=== PATIENT | male | born 1955 | race Caucasian/White ===

== ENCOUNTER 2020-01-05 17:23 | Outpatient (REF) | payer BC, SELFPAY | END 2020-01-05 17:24 | disposition home or self-care (01) | LOC: HO.LAB 17:23 | PROVIDERS: Visit Provider Internal Medicine | DX: Z20.828 Contact with and (suspected) exposure to other viral communicable diseases (principal) | CPT/HCPCS: C9803; U0003 ==

== ENCOUNTER 2020-03-04 08:29 | Day surgery (SDC) | payer BC, SELFPAY ==
[2020-03-04] VITALS (11 sets, daily range): BP systolic 101–180; BP diastolic 61–86; PULSE 55–70; RESP 15–16; TEMP 36.2–36.6; O2SAT 97–100; BMI 22.8
--- NOTE | 2020-03-04 08:21 | ED_ITS ---
HPI - Abdominal Pain General Chief Complaint: Abdominal Pain Stated Complaint: abd pain Time Seen by Provider: 03/04/20 08:21 Source: patient Mode of arrival: ambulatory Limitations: no limitations History of Present Illness HPI narrative: Patient no significant past abdominal complaints complaining of left lower quadrant pain for last 2 days got worse last night mild nausea vomited once today no blood in stool does not feel hungry never had this similar pain in the past patient denies any fever/chills no urinary complaints no history of kidney stone , no abdominal distension MD elicited complaint: abdominal pain Onset (ago): day(s) (2) Pain Consistency: constant Location: LLQ Severity: moderate Quality: dull Migration to: no migration Exacerbating factors: movement Relieving factors: nothing Associated symptoms: nausea and vomiting Related Data Previous Rx's Medication Instructions Recorded oxycodone-acetaminophen [Percocet] 1 tab PO Q6H PRN #14 tab 03/04/20 tamsulosin 0.4 mg PO DAILY #30 cap 03/04/20 Allergies Allergy/AdvReac Type Severity Reaction Status Date / Time No Known Allergies Allergy Verified 03/04/20 12:05 Review of Systems Review of Systems Constitutional : No Weight loss, No Fever, No Chills ENT/Mouth : No sore throat, No Rhinorrhea Eyes: No Eye Pain, No Swelling Cardiovascular : No Chest Pain, no palpitations Respiratory : No Cough, No Sputum, no shortness of breath Gastrointestinal :+ Nausea, + Vomiting, No Diarrhea, + abdominal Pain, no black stools Genitourinary : No Dysuria, No Urinary Frequency Musculoskeletal : No joint pain, No Myalgias, No Joint Swelling Skin : No Skin Lesions, No rash Neuro : No Weakness, No Numbness, No Dizziness, No Headache Psych : No Anxiety/Panic, No Depression Heme/Lymph: No Bruising, No Lymphadenopathy Endocrine : No Polyuria, No Polydipsia All other systems reviewed and are negative Physical Exam Vital Signs: Vital Signs: Last Vital Signs Temp 97.1 F 03/04/20 14:00 Pulse 70 03/04/20 14:00 Resp 16 03/04/20 14:00 BP 141/78 H 03/04/20 14:00 Pulse Ox 97 03/04/20 14:00 Body Mass Index 22.8 Appearance: Alert. Oriented X3. No acute distress. Eyes: Pupils equal, round and reactive to light. ENT: Pharynx normal. Neck: Normal inspection. Neck supple. CVS: Normal heart rate and rhythm. Pulses normal. Respiratory: No respiratory distress. Breath sounds normal. Abdomen: Soft , deep tenderness left lower quadrant+ Bowel sounds are present, no mass palpable, L CVA tenderness + , no rebound tenderness or guarding Skin: Skin warm and dry. Normal skin color. Normal skin turgor. Extremities: No lower extremity edema. Neuro: Oriented X 3. No motor deficit. No sensory deficit. MDM - Abdominal Pain MDM Narrative Medical decision making narrative: Patient with significant left hydronephrosis secondary to proximal 8 mm UPJ stone. Case discussed with Dr. Perez will take the patient for lithotripsy and stent placement today Differential Diagnosis Differential diagnosis: Likely renal colic Medical Records Attestation: I reviewed the patient's medical records. Lab Data Attestation: I reviewed the patient's lab results. Result diagrams: 03/04/20 08:42 03/04/20 09:09 Labs: Lab Results 03/04/20 03/04/20 03/04/20 Range/Units 08:42 09:09 09:39 WBC 15.7 H (4.8-10.8) X10*3/uL RBC 4.66 (4.60-5.80) X10*6/uL Hgb 13.0 L (14.0-18.0) g/dl Hct 39.7 L (42-52) % MCV 85.2 (80-98) fL MCH 27.9 (27.0-33.0) pg MCHC 32.7 (31.0-36.0) g/dl RDW 14.3 (11.0-16.0) % Plt Count 239 (160-400) X10*3/uL MPV 11.4 (9.4-12.4) fL Immature Gran % (Auto) 0.3 (0.0-0.4) % Neut % (Auto) 89.5 H (45-73) % Lymph % (Auto) 6.6 L (20-40) % [place] % (Auto) 3.4 (2-11) % Eos % (Auto) 0.1 (0-4) % Baso % (Auto) 0.1 (0-2) % Lymph # (Auto) 1.0 L (1.2-4.9) X10*3/uL [place] # (Auto) 0.5 (0.1-1.2) X10*3/uL Eos # (Auto) 0.0 (0.0-0.4) X10*3/uL Baso # (Auto) 0.0 (0.0-0.2) X10*3/uL Abs Immat Gran (auto) 0.04 H (0.00-0.03) X10*3/uL Absolute Neuts (auto) 14.1 H (2.0-8.3) X10*3/uL Absolute Nucleated RBC 0.000 (0.0-0.012) X10*3/uL Nucleated RBC % (auto) 0.0 (0.0-0.2) /100WBC Sodium 137 (135-145) mmol/L Potassium 3.8 (3.3-5.1) mmol/l Chloride 102 (96-108) mmol/L Carbon Dioxide 28 (22-29) mmol/L Anion Gap 11 L (12-20) BUN 17 H (9-16) mg/dL Creatinine 0.96 (0.5-1.4) mg/dL Estim Creat Clear Calc 73.8 Estimated GFR > 60 Random Glucose 123 H (60-115) mg/dL Calcium 9.0 (8.4-10.2) mg/dL Total Bilirubin 0.4 (0.0-1.0) mg/dL Direct Bilirubin 0.2 (0.0-0.5) mg/dL AST 13 (5-37) U/L ALT 9 (0-40) U/L Alkaline Phosphatase 83 (39-117) U/L Total Protein 7.2 (6.5-8.0) g/dL Albumin 4.3 (3.5-5.0) g/dL Lipase 10 (8-78) U/L Urine Color Urine Appearance Urine pH (5.0-8.0) Ur Specific [place] (1.005-1.025) Urine Protein (NEG-TRACE) MG/DL Urine Glucose (UA) (NEG) MG/DL Urine Ketones (NEG) MG/DL Urine Blood (NEG) Urine Nitrite (NEG) Ur Leukocyte Esterase (NEG) Urine RBC (0) /HPF Urine WBC (0-4) /HPF Ur Squamous Epith Cells /LPF Urine Bacteria /LPF Urine Mucus /LPF COVID-19 (ARUNA) Negative (Negative) COVID-19 Clin Com See Note 03/04/20 Range/Units 10:44 WBC (4.8-10.8) X10*3/uL RBC (4.60-5.80) X10*6/uL Hgb (14.0-18.0) g/dl Hct (42-52) % MCV (80-98) fL MCH (27.0-33.0) pg MCHC (31.0-36.0) g/dl RDW (11.0-16.0) % Plt Count (160-400) X10*3/uL MPV (9.4-12.4) fL Immature Gran % (Auto) (0.0-0.4) % Neut % (Auto) (45-73) % Lymph % (Auto) (20-40) % Mason % (Auto) (2-11) % Eos % (Auto) (0-4) % Baso % (Auto) (0-2) % Lymph # (Auto) (1.2-4.9) X10*3/uL Mason # (Auto) (0.1-1.2) X10*3/uL Eos # (Auto) (0.0-0.4) X10*3/uL Baso # (Auto) (0.0-0.2) X10*3/uL Abs Immat Gran (auto) (0.00-0.03) X10*3/uL Absolute Neuts (auto) (2.0-8.3) X10*3/uL Absolute Nucleated RBC (0.0-0.012) X10*3/uL Nucleated RBC % (auto) (0.0-0.2) /100WBC Sodium (135-145) mmol/L Potassium (3.3-5.1) mmol/l Chloride (96-108) mmol/L Carbon Dioxide (22-29) mmol/L Anion Gap (12-20) BUN (9-16) mg/dL Creatinine (0.5-1.4) mg/dL Estim Creat Clear Calc Estimated GFR Random Glucose (60-115) mg/dL Calcium (8.4-10.2) mg/dL Total Bilirubin (0.0-1.0) mg/dL Direct Bilirubin (0.0-0.5) mg/dL AST (5-37) U/L ALT (0-40) U/L Alkaline Phosphatase (39-117) U/L Total Protein (6.5-8.0) g/dL Albumin (3.5-5.0) g/dL Lipase (8-78) U/L Urine Color YELLOW Urine Appearance CLEAR Urine pH 6.0 (5.0-8.0) Ur Specific [place] 1.025 (1.005-1.025) Urine Protein NEG (NEG-TRACE) MG/DL Urine Glucose (UA) NEG (NEG) MG/DL Urine Ketones 15 (NEG) MG/DL Urine Blood 1+ H (NEG) Urine Nitrite NEG (NEG) Ur Leukocyte Esterase NEG (NEG) Urine RBC 5-9 H (0) /HPF Urine WBC 0-2 (0-4) /HPF Ur Squamous Epith Cells NONE /LPF Urine Bacteria NONE /LPF Urine Mucus TRACE /LPF COVID-19 (ARUNA) (Negative) COVID-19 Clin Com Discharge Plan Discharge Clinical Impression: Calculus of kidney Patient Disposition: Home, Self-Care Additional Instructions: TO SSS Prescriptions: New tamsulosin 0.4 mg capsule 0.4 mg PO DAILY Qty: 30 RF: 0 oxycodone-acetaminophen [Percocet] 5-325 mg tablet 1 tab PO Q6H PRN (Reason: pain) Qty: 14 RF: 0 Referrals: Physician,None [Primary Care Provider] - Grant Perez III, MD [Physician] - [facility] Past Medical History Medical History (Updated 03/04/20 @ 12:23 by Lien Garcia RN) Normal colonoscopy Social History Social History Alcohol intake: never Smoking Status: Current every day smoker Cigarettes Per Day: 10 Smoked in Last 30 Days: Yes Use of substances other than those prescribed or required for medical reasons: No Advance Directives: No Advance Directives Information Provided: No
--- NOTE | 2020-03-04 08:25 | CT_ITS ---
EXAMINATION: CT ABDOMEN AND PELVIS WITHOUT CONTRAST CLINICAL INFORMATION: Left lower quadrant pain. COMPARISON: None TECHNIQUE: Multidetector volumetric imaging was performed from the superior aspect of the liver through the pubic symphysis. Sagittal and coronal reformatted images were obtained on the technologist's workstation. This CT examination was performed using dose optimization techniques as appropriate, variously including the following: Automated exposure control. Adjustment of mA and/or kV according to patient size (this includes techniques or standardized protocols for targeted exams where dose is matched to indication/reason for exam; i.e. extremities or head). Use of iterative reconstruction technique. DLP: 536 mGy-cm FINDINGS: LUNG BASES: Bibasilar haziness likely atelectasis or scarring. Heart size is normal. There is a small hiatal hernia. LIVER, GALLBLADDER, AND BILIARY TREE: The liver is normal in size, shape, and attenuation. No focal hepatic lesion or biliary ductal dilatation is present. The gallbladder is unremarkable with no evidence of radiopaque gallstones, gallbladder wall thickening, or obvious pericholecystic inflammatory changes. PANCREAS: Unremarkable. SPLEEN: Unremarkable. ADRENAL GLANDS: Unremarkable. KIDNEYS AND URETERS: The kidneys are normal in size, shape, and attenuation. There is a larger 8 mm radiopaque calculi left UPJ with moderate left hydronephrosis and slight enlargement of left kidney with perinephric stranding. There is a nonobstructive 8 mm radiopaque calculi lower pole calyx right kidney without caliectasis. BLADDER: Unremarkable. GASTROINTESTINAL TRACT: There is scattered stool and gas seen throughout the colon without significant distention. The small bowel loops are normal caliber. No free air or free fluid seen. The appendix is normal caliber. ABDOMINAL WALL: No significant hernia is appreciated. LYMPH NODES: Normal. VASCULAR: Unremarkable. PELVIC VISCERA: Scattered phleboliths in the pelvis. No free fluid. No abnormal pelvic lymph nodes seen. OSSEOUS STRUCTURES: Unremarkable. CT/CT abdomen pelvis wo con IMPRESSION: An 8 mm obstructive left UPJ radiopaque calculi with moderate left hydronephrosis and enlargement of left kidney and perinephric stranding. Nonobstructive 8 mm radiopaque calculi lower pole calyx right kidney without caliectasis or hydronephrosis. Mild constipation.
[2020-03-04] MEDS: 0.9 % Sodium Chloride 1,000 ML 999 ML IVCONT ×2 (08:44→10:09)
[2020-03-04 08:48] LABS: MANUAL DIFF FLAG NO
[2020-03-04 08:49] LABS: Basophils Percent Auto 0.1 % (0-2); Eosinophils Percent Auto 0.1 % (0-4); Hematocrit 39.7 % (42-52); Imm Gran Abs Auto 0.04 X10*3/uL (0.00-0.03); Imm Gran Pct Auto 0.3 % (0.0-0.4); Lymphocytes Percent Auto 6.6 % (20-40); Mean Corpuscular HGB Conc 32.7 g/dl (31.0-36.0); Mean Corpuscular Hemoglobin 27.9 pg (27.0-33.0); Mean Corpuscular Volume 85.2 fL (80-98); Mean Platelet Volume 11.4 fL (9.4-12.4); Monocytes Absolute Auto 0.5 X10*3/uL (0.1-1.2); Monocytes Percent Auto 3.4 % (2-11); Neutrophils Absolute Auto 14.1 X10*3/uL (2.0-8.3); Neutrophils Percent Auto 89.5 % (45-73); Platelet Count 239 X10*3/uL (160-400); Red Blood Count 4.66 X10*6/uL (4.60-5.80); Red Cell Distribution Width 14.3 % (11.0-16.0); White Blood Count 15.7 X10*3/uL (4.8-10.8)
[2020-03-04] MEDS: Morphine Sulfate 4 MG/ML CARTRIDGE IVPUSH (08:58)
[2020-03-04] MEDS: ondansetron HCL 4 MG/2 ML VIAL IVPUSH (08:59)
[2020-03-04] MEDS: HYDROmorphone HCl 1 MG/ML SYRINGE IVPUSH (09:41)
[2020-03-04 09:52] LABS: Alanine Aminotransferase 9 U/L (0-40); Albumin Level 4.3 g/dL (3.5-5.0); Alkaline Phosphatase 83 U/L (39-117); Anion Gap 11 (12-20); Aspartate Amino Transferase 13 U/L (5-37); Bilirubin Direct 0.2 mg/dL (0.0-0.5); Bilirubin Total 0.4 mg/dL (0.0-1.0); Blood Urea Nitrogen 17 mg/dL (9-16); Carbon Dioxide 28 mmol/L (22-29); Chloride 102 mmol/L (96-108); Creatinine Clr Calc Pharmacy 73.8; Estimated Glomerular Filt Rate > 60; Glucose Random 123 mg/dL (60-115); Lipase 10 U/L (8-78); Potassium 3.8 mmol/l (3.3-5.1); Sodium 137 mmol/L (135-145); Total Protein 7.2 g/dL (6.5-8.0)
[2020-03-04 10:07] LABS: COVID-19 Test Negative (Negative); IDNOW Serial# 9DD0AD1C
[2020-03-04 11:07] LABS: Glucose Urine UA NEG (NEG); Leukocyte Esterase Urine NEG (NEG); Nitrite Urine NEG (NEG); Specific Gravity - Urine 1.025 (1.005-1.025); Urine Blood 1+ (NEG); Urine Ketones 15 MG/DL (NEG); Urine Protein NEG (NEG-TRACE)
[2020-03-04 11:12] LABS: Appearance Urine CLEAR; Color Urine YELLOW
[2020-03-04 11:25] LABS: WBC Urine 0-2 /HPF (0-4)
[2020-03-04 11:26] LABS: Mucus Urine TRACE /LPF
--- NOTE | 2020-03-04 11:48 | MHC.SHP ---
Pre-Procedural Eval Section A The patient is an INPATIENT: No The History & Physical has been completed within 30 days and I have reviewed it.: No Section B Chief Complaint: abd pain Details of Present Illness: Left flank pain with 8 mm UPJ stone. Discussed in detail risks benefits potential complications morbidity mortality reviewed all questions answered informed consent obtained for the patient undergo a cystoscopy left stent placement. Relevant Family History (Specify if Yes): No Relevant Social History: None Present Medications: see Short Stay Collaborative assessment Medical History: No relevant PMH History of Previous Operations: No relevant previous surgery Allergies: Allergies Allergy/AdvReac Type Severity Reaction Status Date / Time No Known Allergies Allergy Unverified 10/29/19 17:12 Review of Systems Sugical H&P ROS: Negative: Constitution, Cardiovascular, Respiratory, Neurological, Psychiatric, Hem-Onc, Allergic/Immunologic, Gastrointestinal, Genitourinary, Musculoskeletal, Integumentary, Endocrine and Eyes/Ears/Nose/Throat Exam Surgical H&P Exam: Normal: HEENT Plan Diagnosis/Plan: Unchanged (Cystoscopy left retrograde stent placement) I have reviewed the history and physical and performed a pertinent physical examination on my patient. No changes have occurred unless specified.
[2020-03-04] MEDS: Lactated Ringers 1,000 ML 100 ML IVCONT (12:12)
[2020-03-04] MEDS: levoFLOXacin/D5W 500 MG/100 ML PIGGYBACK 100 MG IV (12:16)
[2020-03-04] MEDS: Gentamicin Sulfate/NaCl 80 MG/100 ML PIGGYBACK 100 MG IV (12:18)
--- NOTE | 2020-03-04 12:43 | HO.ANESPROP2 ---
HPI - Anesthesia Eval Consult details Narrative: 64 year old male patient for cysto, stent [facility] Past Medical History Medical History (Updated 03/04/20 @ 12:23 by Lien Garcia RN) Normal colonoscopy Family History Family history of problems with anesthesia: No Surgical History History of Problems with Anesthesia: No Social History Social History Alcohol intake: never Smoking Status: Current every day smoker Cigarettes Per Day: 10 Smoked in Last 30 Days: Yes Use of substances other than those prescribed or required for medical reasons: No Advance Directives: No Advance Directives Information Provided: No Meds Allergies Allergy/AdvReac Type Severity Reaction Status Date / Time No Known Allergies Allergy Verified 03/04/20 12:05 Exam Exam Date and Time: March 04, 2020 1243 Height,Weight and Vital Signs: Height 5 ft 8 in Weight 68.039 kg Last Vital Signs Temp 97.7 F 03/04/20 12:07 Pulse 66 03/04/20 12:07 Resp 16 03/04/20 12:07 BP 144/75 H 03/04/20 12:07 Pulse Ox 98 03/04/20 12:07 Pertinent Lab Results Pertinent Lab Results: Laboratory Tests 03/04/20 03/04/20 03/04/20 08:42 09:09 09:39 WBC 15.7 H RBC 4.66 Hgb 13.0 L Hct 39.7 L MCV 85.2 MCH 27.9 MCHC 32.7 RDW 14.3 Plt Count 239 MPV 11.4 Immature Gran % (Auto) 0.3 Neut % (Auto) 89.5 H Lymph % (Auto) 6.6 L [place] % (Auto) 3.4 Eos % (Auto) 0.1 Baso % (Auto) 0.1 Lymph # (Auto) 1.0 L [place] # (Auto) 0.5 Eos # (Auto) 0.0 Baso # (Auto) 0.0 Abs Immat Gran (auto) 0.04 H Absolute Neuts (auto) 14.1 H Absolute Nucleated RBC 0.000 Nucleated RBC % (auto) 0.0 Sodium 137 Potassium 3.8 Chloride 102 Carbon Dioxide 28 Anion Gap 11 L BUN 17 H Creatinine 0.96 Estim Creat Clear Calc 73.8 Estimated GFR > 60 Random Glucose 123 H Calcium 9.0 Total Bilirubin 0.4 Direct Bilirubin 0.2 AST 13 ALT 9 Alkaline Phosphatase 83 Total Protein 7.2 Albumin 4.3 Lipase 10 Urine Color Urine Appearance Urine pH Ur Specific [place] Urine Protein Urine Glucose (UA) Urine Ketones Urine Blood Urine Nitrite Ur Leukocyte Esterase Urine RBC Urine WBC Ur Squamous Epith Cells Urine Bacteria Urine Mucus COVID-19 (ARUNA) Negative COVID-19 Clin Com See Note 03/04/20 10:44 WBC RBC Hgb Hct MCV MCH MCHC RDW Plt Count MPV Immature Gran % (Auto) Neut % (Auto) Lymph % (Auto) [place] % (Auto) Eos % (Auto) Baso % (Auto) Lymph # (Auto) [place] # (Auto) Eos # (Auto) Baso # (Auto) Abs Immat Gran (auto) Absolute Neuts (auto) Absolute Nucleated RBC Nucleated RBC % (auto) Sodium Potassium Chloride Carbon Dioxide Anion Gap BUN Creatinine Estim Creat Clear Calc Estimated GFR Random Glucose Calcium Total Bilirubin Direct Bilirubin AST ALT Alkaline Phosphatase Total Protein Albumin Lipase Urine Color YELLOW Urine Appearance CLEAR Urine pH 6.0 Ur Specific [place] 1.025 Urine Protein NEG Urine Glucose (UA) NEG Urine Ketones 15 Urine Blood 1+ H Urine Nitrite NEG Ur Leukocyte Esterase NEG Urine RBC 5-9 H Urine WBC 0-2 Ur Squamous Epith Cells NONE Urine Bacteria NONE Urine Mucus TRACE COVID-19 (ARUNA) COVID-19 Clin Com Airway Mallampati Class: II TM Dist: >3cm Neck ROM: Full Loose/Missing/Broken Teeth: Yes (Broken tooth) Heart: RRR Lungs: CTAB Assessment and Plan Assessment Anesthesia Assessment: Anesthesia Plan Discussed and Chart Reviewed Final Anesthetic Review NPO: Yes ASA Class: II Final Preanesthetic Review: No Changes in Pt Med Stat, Meds/Allgs Chart Reviewed, Consent Obtained/Reviewed and Anes Risks/Benef Reviewed Patient Risk: Low Procedure Risk: Low Assessment/Block/Sedation in SS: Assess/Block/Sedation-SS Anesthetic Plan Anesthetic Plan: GA Disposition: Standard PACU
--- NOTE | 2020-03-04 12:58 | PM.OP ---
Brief Operative Note Date of Service: 03/04/20 Pre-op diagnosis: lkeft upj stone Post-op diagnosis: same Procedure: cysto left retrograe and stent Implants: 6 fr x 24 cm double j stent Surgeon: Grant Perez III, MD Anesthesia: GLMA Estimated blood loss (mL): 0 Pathology: none sent Condition: stable Disposition: same day
--- NOTE | 2020-03-04 13:53 | OP_ITS ---
SURGEON: Grant Perez III, MD PREOPERATIVE DIAGNOSIS: POSTOPERATIVE DIAGNOSIS: PROCEDURE PERFORMED: Cystoscopy, left retrograde, and left double-J ureteral stent placement. ESTIMATED BLOOD LOSS: None. COMPLICATIONS: None. ANESTHESIA: General. ASSISTANTS: SPECIMENS: PREOP DIAGNOSIS: Left ureteropelvic junction stone. POSTOP DIAGNOSIS: Left ureteropelvic junction stone. SPECIMEN: None. DRAINS: 6-[place] by 24 cm double-J stent. DESCRIPTION OF PROCEDURE: The patient was taken to the operating room, after adequate anesthesia was obtained, a time-out done demonstrating correct patient, correct procedure, and correct site. Following this, the patient underwent cystoscopy followed by left retrograde demonstrated the filling defect in the UPJ. Glidewire was placed, which was noted to push the stone into the patient's renal pelvis. Patient had a 6-[place] by 24 cm double-J stent placed in good position by fluoroscopy and cystoscopy. He tolerated the procedure well without complications. MD LAUREN Carroll III/MODL / [id number]
--- NOTE | 2020-03-04 14:24 | HO.POSTANES ---
Post Anesthesia Evaluation Post Anesthesia Evaluation Vital Signs: Vital Signs Temp Pulse Resp BP Pulse Ox 03/04/20 14:00 97.1 F 70 16 141/78 H 97 03/04/20 13:45 62 16 119/70 97 03/04/20 13:30 58 16 115/70 98 03/04/20 13:25 59 16 108/61 100 03/04/20 13:20 57 16 101/62 100 03/04/20 13:15 97.1 F 58 16 103/61 100 03/04/20 12:07 97.7 F 66 16 144/75 H 98 03/04/20 10:07 97.8 F 55 16 137/80 99 03/04/20 09:43 60 15 155/83 H 99 03/04/20 09:17 97.8 F 56 15 180/86 H 100 03/04/20 08:19 97.8 F 56 15 180/86 H 100 Anesthesia: General LMA Mental Status: Awake Pain Control: Satisfactory Nausea/Vomiting: None Hydration: Adequate Anesthesia-Related Issues: No Anes. Related Issues
== END 2020-03-04 18:30 | disposition home or self-care (01) ==
LOC: HO.ED 14:27 → HO.SSS 03-11 15:57
PROVIDERS: Urology; Visit Provider Internal Medicine
PROC: (CPT 52332; principal; 2020-03-04 12:30)
DX: N13.2 Hydronephrosis with renal and ureteral calculous obstruction (principal); Z20.822 Contact with and (suspected) exposure to COVID-19; F17.200 Nicotine dependence, unspecified, uncomplicated
CPT/HCPCS: 52332; 52005; 36415; 74176; 80048; 80076; 81001; 83690; 85025; 87635; 99284; C1769; C2617; J1100; J1170; J1580; J1956; J2250; J2270; J2405; J3010; Q9967

== ENCOUNTER → 2020-03-07 10:19 | Outpatient (BNVA) | payer BC, SELFPAY | PROVIDERS: Visit Provider Urology ==

== ENCOUNTER 2020-03-30 06:01 | Day surgery (SDC) | payer BC, SELFPAY ==
[2020-03-23 16:47] VITALS: BMI 22.6
--- NOTE | 2020-03-29 11:51 | HO.ANESPROP2 ---
Documented by User: Mojgan Raymundo 03/29/20 12:10 HPI - Anesthesia Eval Consult details Narrative: 64yo M for ESWL s/p cysto, stent 03/04/20 with GA-LMA 5 No prev ESWL on record PMFSH Active Problems Active Problems: All Active Problems (Updated 03/08/20 @ 00:00 by Joaquín Mota) Displacement of indwelling ureteral stent (Acute) Past Medical History Medical History Displacement of indwelling ureteral stent Normal colonoscopy Surgical History Surgical History Hx of cystoscopy Hx of varicose vein ligation Social History Social History Alcohol intake: never Smoking Status: Current every day smoker Cigarettes Per Day: 10 Years Smoked: 25 Use of substances other than those prescribed or required for medical reasons: No Advance Directives: No Advance Directives Information Provided: No Advance Directives on File: No Meds Allergies Allergy/AdvReac Type Severity Reaction Status Date / Time No Known Allergies Allergy Verified 03/30/20 06:19 Exam Exam Date and Time: March 29, 2020 1151 Height,Weight and Vital Signs: Height 5 ft 8 in Weight 67.585 kg Pertinent Lab Results Pertinent Lab Results: Laboratory Tests 03/04/20 03/04/20 08:42 09:09 WBC 15.7 H Hgb 13.0 L Hct 39.7 L Plt Count 239 Sodium 137 Potassium 3.8 Chloride 102 Carbon Dioxide 28 BUN 17 H Creatinine 0.96 Assessment and Plan Assessment Anesthesia Assessment: Chart Reviewed Documented by User: Bri Kim 03/30/20 07:42 PMFSH Past Medical History Medical History Displacement of indwelling ureteral stent Normal colonoscopy Surgical History Surgical History Hx of cystoscopy Hx of varicose vein ligation Social History Social History Alcohol intake: never Smoking Status: Current every day smoker Cigarettes Per Day: 10 Years Smoked: 25 Use of substances other than those prescribed or required for medical reasons: No Advance Directives: No Advance Directives Information Provided: No Advance Directives on File: No Meds Allergies Allergy/AdvReac Type Severity Reaction Status Date / Time No Known Allergies Allergy Verified 03/30/20 06:19 Exam Airway Mallampati Class: II TM Dist: >3cm Neck ROM: Full Assessment and Plan Assessment Anesthesia Assessment: Anesthesia Plan Discussed and Chart Reviewed Final Anesthetic Review NPO: Yes ASA Class: II Final Preanesthetic Review: No Changes in Pt Med Stat, Meds/Allgs Chart Reviewed, Consent Obtained/Reviewed and Anes Risks/Benef Reviewed Patient Risk: Low Procedure Risk: Low Assessment/Block/Sedation in SS: Assess/Block/Sedation-SS Anesthetic Plan Anesthetic Plan: MAC: Disposition: Standard PACU
[2020-03-30] VITALS (8 sets, daily range): BP systolic 90–135; BP diastolic 44–72; PULSE 46–54; RESP 12–18; TEMP 36.2–36.6; O2SAT 97–99
--- NOTE | ~2020-03-30 | XR_ITS ---
EXAMINATION: XR ABDOMEN KUB CLINICAL INDICATION: Stones. COMPARISON: CT abdomen of 03/04/2020. TECHNIQUE: KUB of the abdomen. FINDINGS: The bowel gas pattern is normal with no evidence of ileus or obstruction. The bones are unremarkable. A left ureteral stent is seen in place. About the proximal aspect of the stent, in the expected location of the ureteropelvic junction or proximal ureter, there is a 9 x 7 mm calculus. No other calculus is seen along the path of the stent. Overlying the lower pole of the right kidney, there is a 5 mm calcification. No calcifications seen along the expected path of the right ureter. Psoas margin is intact. XR/XR KUB IMPRESSION: 9 mm calcification along the left ureteral stent which appears to lie either at the ureteropelvic junction or proximal ureter. 5 mm right lower pole calculus.
[2020-03-30] MEDS: Lactated Ringers 1,000 ML 100 ML IVCONT (06:43)
--- NOTE | 2020-03-30 07:46 | MHC.SHP ---
Pre-Procedural Eval Section A The patient is an INPATIENT: No Changes since office visit: No Cold of Flu in the past 2 weeks, No New Medical Problems, No Changes in Medication and No Patient answered all questions The History & Physical has been completed within 30 days and I have reviewed it.: Yes Section B Chief Complaint: calculus of kidney Allergies: Allergies Allergy/AdvReac Type Severity Reaction Status Date / Time No Known Allergies Allergy Verified 03/30/20 06:19 Plan Diagnosis/Plan: Unchanged I have reviewed the history and physical and performed a pertinent physical examination on my patient. No changes have occurred unless specified. Left ESWL
--- NOTE | 2020-03-30 07:47 | PM.OP ---
Brief Operative Note Date of Service: 03/30/20 Pre-op diagnosis: Left renal stone Post-op diagnosis: same Procedure: Left ESWL Surgeon: Mohamud oCates MD Anesthesia: MAC Estimated blood loss (mL): 0 Condition: stable Disposition: same day
--- NOTE | 2020-03-30 07:50 | W.PM.OPN ---
Operative Note Operative Note Date of Service: 03/30/20 Narrative: PreOperative Diagnosis: left Renal stones Post Operative Diagnosis: left Renal stones Procedure: left ESWL Surgeon: Dr Mohamud Coates Anesthesia: mac/sedation Indications for procedure: They understand ESWL may be a staged procedure and subsequent intervention may be required based on imaging after ESWL. They also understand there is a risk of bleeding, infection, damage to adjacent organs. Procedure: After informed consent was verified the patient was brought to the operating room and placed in a supine position. Anesthesia was performed per protocol. Safety pause time-out was performed. Imaging was in the room and laterality confirmed. ESWL was performed. The 1st 500 shocks were performed at 60 hertz. These were performed with increasing power. Once maximum power was reached the rate was increased to 180 hertz. A total of 2500 shocks were given. Fluoroscopy showed stone disintegration. They tolerated procedure well and was transferred to the recovery area upon completion.
[2020-03-30] MEDS: Phenazopyridine HCL 100 MG TABLET PO (08:25)
--- NOTE | 2020-03-30 10:05 | HO.POSTANES ---
Post Anesthesia Evaluation Post Anesthesia Evaluation Vital Signs: Vital Signs Temp Pulse Resp BP Pulse Ox 03/30/20 09:00 50 18 135/72 98 03/30/20 08:45 48 L 18 102/66 98 03/30/20 08:30 46 L 18 101/61 98 03/30/20 08:15 47 L 102/56 L 98 03/30/20 08:10 52 90/52 L 98 03/30/20 08:04 52 16 96/47 L 97 03/30/20 08:01 97.2 F 52 12 91/44 L 97 03/30/20 06:41 97.8 F 54 16 128/72 99 Anesthesia: Monitored Mental Status: Awake Pain Control: Satisfactory Nausea/Vomiting: None Hydration: Adequate Anesthesia-Related Issues: No Anes. Related Issues
== END 2020-03-30 09:48 | disposition home or self-care (01) ==
PROVIDERS: Visit Provider Urology
PROC: (CPT 50590; principal; 2020-03-30 07:30)
DX: N20.0 Calculus of kidney (principal); F17.210 Nicotine dependence, cigarettes, uncomplicated
CPT/HCPCS: 50590; 74018; J1885; J2370; J2405; J3010

== ENCOUNTER → 2020-05-24 10:49 | Outpatient (BNVA) | payer BC, SELFPAY | PROVIDERS: Visit Provider Urology | DX: Z46.6 Encounter for fitting and adjustment of urinary device (principal) | CPT/HCPCS: 52310 ==

== ENCOUNTER 2020-06-02 16:13 | Outpatient (REF) | payer BC, SELFPAY ==
--- NOTE | ~2020-06-02 | US_ITS ---
EXAMINATION: US RETROPERITONEAL LIMITED (RENAL ONLY) CLINICAL INFORMATION: Calculus of kidney. COMPARISON: KUB 03/30/2020. CT abdomen and pelvis 03/04/2020. TECHNIQUE: Real-time imaging of the kidneys. FINDINGS: RIGHT KIDNEY: 10.4 x 4.6 x 4.8 cm (SAG x AP x TRV). The kidney is normal in size, contour, and echogenicity. Renal cortical thickness is normal. No focal parenchymal lesions. There is no hydronephrosis. A 0.9 cm x 0.5 echogenic, shadowing focus is suspected in the region of the right proximal ureter near the ureteropelvic junction. This may correspond to a calculus that was situated within a lower pole calyx on the prior study. LEFT KIDNEY: 12.0 x 5.9 x 5.2 cm (SAG x AP x TRV). The kidney is normal in size, contour, and echogenicity. Renal cortical thickness is normal. No renal calculi or focal parenchymal lesions. Mild hydronephrosis, improved as compared to the prior CT from 03/04/2020. BLADDER: Bilateral ureteral jets are demonstrated. Bladder wall is normal in thickness. US/US renal BI IMPRESSION: 1. Probable 9 mm calculus in the region of the right proximal ureter at the UPJ. No appreciable hydronephrosis. This was evident on prior radiographs within the right lower renal pole. Consider correlation with KUB or CT for further assessment. 2. Mild left hydronephrosis, improved as compared to prior.
== END 2020-06-02 16:14 | disposition home or self-care (01) ==
LOC: HO.US 16:13
PROVIDERS: Visit Provider Urology
DX: N20.0 Calculus of kidney (principal)
CPT/HCPCS: 76775

== ENCOUNTER → 2020-09-28 13:20 | Outpatient (BNVA) | payer BC, SELFPAY | PROVIDERS: Visit Provider Urology ==

== ENCOUNTER 2020-11-30 06:14 | Day surgery (SDC) | payer BC, SELFPAY ==
[2020-11-25 10:37] VITALS: BMI 22.6
--- NOTE | ~2020-11-30 | XR_ITS ---
EXAMINATION: XR ABDOMEN KUB CLINICAL INDICATION: Kidney stones COMPARISON: Previous KUB March 2020 TECHNIQUE: AP view of the abdomen. FINDINGS: There is a 5 mm stone projecting over the lower pole of the right kidney. There is question of a 3 mm stone projecting over the mid to lower pole of the left kidney versus bowel gas. There are small bilateral pelvic calcifications that are stable probably representing calcified phleboliths. The previously identified 9 mm left ureteral stone and left internal ureteral stent on March 2020 are no longer seen. Bowel gas pattern and bony structures are unremarkable. XR/XR KUB IMPRESSION: 5 mm right lower pole renal stone. Question 3 mm left mid pole renal stone versus bowel gas.
[2020-11-30] MEDS: Acetaminophen 325 MG TABLET 650 MG PO (07:24)
[2020-11-30 07:26] VITALS: BP 148/69; PULSE 58; RESP 18; TEMP 36.6; O2SAT 100; BMI 22.8
--- NOTE | 2020-11-30 07:57 | HO.ANESPROP2 ---
[facility] Active Problems Active Problems: All Active Problems (Updated 05/24/20 @ 12:11 by Mohamud Coates MD) Nephrolithiasis (Acute) Displacement of indwelling ureteral stent (Acute) Past Medical History Medical History Displacement of indwelling ureteral stent Normal colonoscopy Family History Family history of problems with anesthesia: No Surgical History Surgical History Hx of cystoscopy Hx of lithotripsy Hx of varicose vein ligation History of Problems with Anesthesia: No Social History Social History Alcohol intake: never Patient Tobacco Use Status: Current everyday Tobacco user Tobacco use type: Cigarette Cigarettes Per Day: 10 Years Smoked: 25 Smoked in Last 30 Days: Yes Are you DNR?: No Advance Directives: No Advance Directives Information Provided: Yes Recently lost weight without trying: No Nutrition Risks: No Nutritional Risk Meds Allergies Allergy/AdvReac Type Severity Reaction Status Date / Time No Known Allergies Allergy Verified 09/28/20 12:53 Exam Exam Date and Time: November 30, 2020 0757 Height,Weight and Vital Signs: Height 5 ft 8 in Weight 68 kg Last Vital Signs Temp 97.8 F 11/30/20 07:26 Pulse 58 11/30/20 07:26 Resp 18 11/30/20 07:26 BP 148/69 H 11/30/20 07:26 Pulse Ox 100 11/30/20 07:26 Airway Mallampati Class: II TM Dist: >3cm Neck ROM: Full Loose/Missing/Broken Teeth: No Heart: RRR Lungs: CTA Assessment and Plan Assessment Anesthesia Assessment: Anesthesia Plan Discussed Final Anesthetic Review Family History of Problems with Anesthesia: No History of Problems with Anesthesia: No NPO: Yes ASA Class: II Final Preanesthetic Review: Meds/Allgs Chart Reviewed, Consent Obtained/Reviewed and Anes Risks/Benef Reviewed Patient Risk: Low Procedure Risk: Low Anesthetic Plan Anesthetic Plan: MAC: Disposition: Standard PACU
--- NOTE | 2020-11-30 08:18 | MHC.SHP ---
Pre-Procedural Eval Section A Date of Service: 11/30/20 Section B Chief Complaint: kidney stone Details of Present Illness: right 8mm Relevant Social History: None Present Medications: see Short Stay Collaborative assessment Medical History: No relevant PMH History of Previous Operations: No relevant previous surgery Allergies: Allergies Allergy/AdvReac Type Severity Reaction Status Date / Time No Known Allergies Allergy Verified 09/28/20 12:53 Review of Systems Sugical H&P ROS: Negative: Constitution, Cardiovascular, Respiratory, Neurological, Psychiatric, Hem-Onc, Allergic/Immunologic, Gastrointestinal, Genitourinary, Musculoskeletal, Integumentary, Endocrine and Eyes/Ears/Nose/Throat Exam Surgical H&P Exam: Normal: HEENT, Normal: Heart, Normal: Lungs, Normal: Extremities, Normal: Abdomen, Normal: Skin and Normal: Neurological Plan Diagnosis/Plan: Unchanged (right ESWL) I have reviewed the history and physical and performed a pertinent physical examination on my patient. No changes have occurred unless specified.
--- NOTE | 2020-11-30 08:48 | W.PM.OPN ---
Operative Note Operative Note Date of Service: 11/30/20 Narrative: PreOperative Diagnosis: Right Renal stones Post Operative Diagnosis: Right Renal stones Procedure: Right ESWL Surgeon: Dr Mohamud Coates Anesthesia: mac/sedation Indications for procedure: The patient understands ESWL may be a staged procedure and subsequent intervention may be required based on imaging after ESWL. They also understand there is a risk of bleeding to the kidney, infection, damage to adjacent organs, and stone migration following the procedure. Procedure: After informed consent was verified the patient was brought to the operating room and placed in a supine position. Anesthesia was performed per protocol. Safety pause time-out was performed. Imaging was displayed in the room and laterality confirmed. - right lower pole 8 mm ESWL was performed. The 1st 500 shocks were performed at 60 hertz. These were performed with increasing power. Once maximum power was reached the rate was increased to 180 hertz. A total of 2500 shocks were given. Targetted imaging with ultrasound/fluoroscopy showed stone smudging suggestive of disintegration. The patient tolerated the procedure well and was transferred to the recovery area upon completion. Post procedure imaging will be organized. There was no evidence for flank discoloration.
[2020-11-30 09:05] VITALS: BP 110/63; PULSE 50; RESP 12; TEMP 36.2; O2SAT 98
[2020-11-30 09:20] VITALS: BP 118/70; PULSE 48; RESP 16; O2SAT 98
[2020-11-30 09:35] VITALS: BP 139/74; PULSE 61; RESP 16; O2SAT 98
[2020-11-30] MEDS: Phenazopyridine HCL 100 MG TABLET PO (10:00)
[2020-11-30 10:03] VITALS: TEMP 36.4
== END 2020-11-30 10:32 | disposition home or self-care (01) ==
PROVIDERS: Visit Provider Urology
PROC: (CPT 50590; principal; 2020-11-30 08:10)
DX: N20.0 Calculus of kidney (principal); Z87.442 Personal history of urinary calculi; F17.210 Nicotine dependence, cigarettes, uncomplicated
CPT/HCPCS: 50590; 74018; J1100; J1885; J2250; J2405; J3010

== ENCOUNTER 2021-01-23 15:03 | Outpatient (REF) | payer BC, SELFPAY ==
--- NOTE | ~2021-01-23 | US_ITS ---
EXAMINATION: US RETROPERITONEAL LIMITED (RENAL ONLY) CLINICAL INFORMATION: Calculus of kidney. COMPARISON: KUB 11/30/2020. CT abdomen and pelvis 03/04/2020. Renal ultrasound 06/02/2020. TECHNIQUE: Real-time imaging of the kidneys. FINDINGS: RIGHT KIDNEY: 9.9 x 5.6 x 4.5 cm (SAG x AP x TRV). The kidney is normal in size, contour, and echogenicity. Renal cortical thickness is normal. No calculi or focal parenchymal lesions. No hydronephrosis. LEFT KIDNEY: 11.1 x 6.1 x 4.0 cm (SAG x AP x TRV). The kidney is normal in size, contour, and echogenicity. Renal cortical thickness is normal. There is a 7 mm echogenic density with twinkle artifact and shadowing in the upper pole suggestive stone. There is a 1 cm cyst in the lower pole. No hydronephrosis. US/US renal BI IMPRESSION: Left renal stone. No right renal stone appreciated. No hydronephrosis. Small left renal cyst.
== END 2021-01-23 15:04 | disposition home or self-care (01) ==
LOC: HO.US 15:03
PROVIDERS: Visit Provider Urology
DX: N20.0 Calculus of kidney (principal)
CPT/HCPCS: 76775

== ENCOUNTER → 2021-02-14 15:32 | Outpatient (BNVA) | payer BC, SELFPAY | PROVIDERS: Visit Provider Urology | DX: Z13.9 Encounter for screening, unspecified (principal); N20.0 Calculus of kidney | CPT/HCPCS: 81002 ==

== ENCOUNTER 2021-07-20 11:02 | Outpatient (REF) | payer BC, SELFPAY ==
--- NOTE | ~2021-07-20 | US_ITS ---
EXAMINATION: US RETROPERITONEAL LIMITED (RENAL ONLY) CLINICAL INFORMATION: Calculus of kidney. COMPARISON: Renal ultrasound 01/23/2021 and 06/02/2020. X-ray KUB 11/30/2020 and 03/30/2020. CT abdomen and pelvis 03/04/2020. TECHNIQUE: Real-time imaging of the kidneys. FINDINGS: RIGHT KIDNEY: 11.0 x 4.5 x 4.9 cm (SAG x AP x TRV). The kidney is normal in size, contour, and echogenicity. Renal cortical thickness is normal. There is a small 3 mm stone in the lower pole. There are 2 small cysts measuring 7 mm in the lower pole and 6 mm in the upper to midpole. No mass or hydronephrosis. LEFT KIDNEY: 11.1 x 5.7 x 3.8 cm (SAG x AP x TRV). The kidney is normal in size, contour, and echogenicity. Renal cortical thickness is normal. There are several small stones. Largest stone measures 4 x 6 mm in the lower pole. There is a 1 cm cyst in the lower pole. No renal mass or hydronephrosis. US/US renal BI IMPRESSION: Small bilateral renal stones, left greater than right. Small bilateral renal cysts.
== END 2021-07-20 11:03 | disposition home or self-care (01) ==
LOC: HO.US 11:02
PROVIDERS: Visit Provider Urology
DX: N20.0 Calculus of kidney (principal)
CPT/HCPCS: 76775

== ENCOUNTER 2023-05-04 17:40 | Emergency (ER) | payer OTHER, SELFPAY ==
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
[2023-05-04 17:48] VITALS: BP 174/94; BP 180/92; PULSE 68; PULSE 80; RESP 18; TEMP 36.1; O2SAT 98; O2SAT 99; BMI 19.9
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
[2023-05-04 20:51] VITALS: BP 173/82; PULSE 62; RESP 16; TEMP 36.6; O2SAT 100
[2023-05-04 22:41] VITALS: BP 145/76; PULSE 58; RESP 16; TEMP 37; O2SAT 99
== END 2023-05-04 22:43 | disposition home or self-care (01) ==
PROVIDERS: Emergency Provider Emergency Medicine
DX: S40.012A Contusion of left shoulder, initial encounter (principal); M54.2 Cervicalgia; R51.9 Headache, unspecified; M79.602 Pain in left arm; V43.52XA Car driver injured in collision with other type car in traffic accident, initial encounter; Y93.9 Activity, unspecified; Y92.410 Unspecified street and highway as the place of occurrence of the external cause; Y99.8 Other external cause status
CPT/HCPCS: 70450; 72125; 73030; 73060; 99284